=== PATIENT | female | born 1970 | race Caucasian/White ===

== ENCOUNTER 2023-03-20 22:30 | Emergency (ER) | payer BC, SELFPAY ==
[2023-03-20 22:31] VITALS: BP 143/92; PULSE 105; RESP 18; TEMP 36.4; O2SAT 96; BMI 31.1
--- NOTE | 2023-03-20 23:12 | ED.FALL ---
HPI - Fall General Chief Complaint: Fall Stated Complaint: fell downstairs back pain Time Seen by Provider: 03/20/23 22:33 History of Present Illness HPI Narrative: Patient is a 52-year-old female status post accidental fall. Patient was trying to lift a table walk down a stair when she fell on to concrete steps. Complaining of pain to the right gluteal area. Pain is made worse with movement. There is no loss of consciousness. There was no nausea no vomiting. No head injury. Not on blood thinners. Patient is from home. No alcohol no drugs. Related Data Previous Rx's Medication Instructions Recorded oxycodone 5 mg tablet 5 mg PO Q8H PRN pain #11 tabs 03/21/23 Allergies Allergy/AdvReac Type Severity Reaction Status Date / Time aspirin [Aspirin] Allergy Severe GI BLEED, Unverified 11/29/19 15:17 stomach upset/bleeding ibuprofen [Ibuprofen] Allergy Severe GI BLEED, Unverified 11/29/19 15:17 stomach upset, bleeding Antihistamine AdvReac Unknown tachycardia Uncoded 11/14/12 00:00 sulfa AdvReac Unknown nausea Uncoded 01/12/18 00:00 Review of Systems Review of Systems: Positive pain to the right gluteal area. Yes all other systems are reviewed and are negative Constitutional: Constitutional: Reports as per HPI Eyes: Eyes: Reports as per HPI [facility] Past Medical History Attestation statement: The following information was validated with the patient. Onset Date is defined in the Problem List Problems that require an onset date and time if occurred within 24 hrs of arrival to the ED Aortic Dissection and Rupture; Neurologic impairment; Cardiopulmonary Arrest; Endotracheal Intubation; Insertion or Replacement of Mechanical Circulatory Assist Device Social History Social History Advance Directives: No Advance Directives Information Provided: No Physical Exam Vital Signs: Vital Signs: Last Vital Signs Temp 98.1 F 03/21/23 00:22 Pulse 90 03/21/23 00:22 Resp 17 03/21/23 00:22 BP 128/76 03/21/23 00:22 Pulse Ox 92 03/21/23 00:22 O2 Del Method Room Air 03/21/23 00:22 BMI result Body Mass Index 31.1 Appearance: Alert. Oriented X3. No acute distress. Eyes: Pupils equal, round and reactive to light. ENT: Pharynx normal. Neck: Normal inspection. Neck supple. No lymph nodes noted. No crepitus CVS: Normal heart rate and rhythm. Pulses normal. Normal S1 and S2 Respiratory: No respiratory distress. Breath sounds normal. No Wheezing. No rales Abdomen: Soft and nontender. No rigidity. No distention. good BS x4 Skin: Large hematoma over the gluteal area on the right side. There is no CVA tenderness noted on The right side. Range of motion at the hip grossly intact Extremities: No lower extremity edema. Neurovascular intact to all extremities. No Lacerations. No Rash Neuro: Oriented X 3. No motor deficit. No sensory deficit. Moving all extermities. No slurred speech Medications Administered Discontinued Medications Generic Name Dose Route Start Last Admin Trade Name Freq PRN Reason Stop Dose Admin Acetaminophen 650 mg 03/20/23 23:05 03/21/23 00:27 Acetaminophen 325 Mg Tablet PO 03/20/23 23:06 Not Given ONCE ONE Hydromorphone HCl 2 mg 03/20/23 23:50 03/20/23 23:56 Hydromorphone Hcl 2 Mg Tablet PO 03/20/23 23:51 2 mg ONCE ONE Administration Discharge Plan Discharge Clinical Impression: Fracture of lumbar spine Patient Disposition: Home, Self-Care Instructions: Acute Low Back Pain (ED) Additional Instructions: there is a fracture of your 1st lumbar spine transverse processes. This is a stable fracture. However you may have pain with this. Prescriptions: New oxycodone 5 mg tablet 5 mg PO Q8H PRN (Reason: pain) Qty: 11 0RF Rx Instructions: Partial Fill upon patient request. Referrals: Physician,Cat J [Primary Care Provider] - 03/23/23 Mario Machado MD [Physician] - 03/23/23
--- NOTE | 2023-03-20 23:46 | PC.NURSE ---
RN to bedside for medication administration per MAY. Upon arrival to bedside pt was noted to look visibly uncomfortable sitting in a high fowlers like position. RN made pt aware that tylenol was the medication being offered however spouse at bedside states the pt took 1000mg of Tylenol around 1999 and there was no improvement in pain. RN to make MD Colvin aware and to request additional pain medication.
[2023-03-21 00:22] VITALS: BP 128/76; PULSE 90; RESP 17; TEMP 36.7; O2SAT 92
[2023-03-21 01:00] VITALS: BP 133/82; PULSE 91; RESP 18; O2SAT 95
== END 2023-03-21 01:04 | disposition home or self-care (01) ==
PROVIDERS: Emergency Provider Emergency Medicine Emergency Medical Services
DX: S32.019A Unspecified fracture of first lumbar vertebra, initial encounter for closed fracture (principal); W10.9XXA Fall (on) (from) unspecified stairs and steps, initial encounter; Y93.9 Activity, unspecified; Y92.9 Unspecified place or not applicable; Y99.9 Unspecified external cause status; M54.50 Low back pain, unspecified
CPT/HCPCS: 74176; 99284

== ENCOUNTER 2023-03-30 13:54 | Outpatient (AMB) | payer BC, SELFPAY ==
--- NOTE | 2023-03-30 14:07 | A.OFFVIS_ITS ---
Intake Intake Visit Reasons: fracture of lumbar spine? Intake Note: Pt here to follow up [facility] ED visit [employer] Required: No Allergies aspirin [Aspirin] Allergy (Severe, Unverified 11/29/19 15:17) GI BLEED, stomach upset/bleeding ibuprofen [Ibuprofen] Allergy (Severe, Unverified 11/29/19 15:17) GI BLEED, stomach upset, bleeding Antihistamine Adverse Reaction (Unknown, Uncoded 11/14/12 00:00) tachycardia sulfa Adverse Reaction (Unknown, Uncoded 01/12/18 00:00) nausea Assessment & Plan Assessment & Plan (1) Fracture of lumbar spine: Code(s): S32.009A - Unspecified fracture of unspecified lumbar vertebra, initial encounter for closed fracture Plan Dear colleague, Thank you for referring Maddie to our office today. She has a pleasant 52-year-old female who comes in today with a chief complaint of low back pain on her right side. She reports that her back pain is secondary to a fall on cement stairs which happened 10 days ago. She states that she gets a sharp burning-type pain in her low back that is isolated to the area in which he fell off several times throughout the day when she moves. She reports no radiation of symptoms, and no involvement of her lower extremities. She states that she is attempted to use [id number] Tylenol to help alleviate her symptoms and feels as though it provides modest relief. She also does have a prescription of oxycodone at this time, however feels as though she does not like taking it. She does report a pertinent medical history of a prior spinal surgery at L5-S1 for resection of a herniated disc. PMH: High blood pressure, previous herniated disc with surgical resection. Social hx: Patient does not smoke, reports no substance use. Medications: Diltiazem, lisinopril, Xanax, Ambien, venlafaxine. Allergies: Aspirin, ibuprofen, antihistamines, sulfa. Physical exam: No neurological deficits. Sensation is grossly intact. The patient is able to ambulate well, and rises from a seated position without difficulty. There is no ecchymosis or edema noted on inspection of the skin surface near the lumbar/thoracic spine. The patient does have pain to direct palpation of the lumbar spine, more so on the right. Imaging review: CT scan of the abdomen/pelvis shows mildly displaced fracture of the distal end of the transverse process on the right side of L1. Impression: Maddie is a pleasant 52-year-old female who comes in today with a chief complaint of mid-low back pain that has been ongoing for the last 10 days after she fell onto a cement staircase. She reports that her symptoms do not radiate, and are well localized to her low back/mid spine. She has no neurological symptoms. She has taken some time off of work and is attempting to rest/heal at home. 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 She was reassured that no treatment is needed for this issue, and it will heal on it s own. Her pain is relatively low-grade, rated as a 2-3 by the patient. She was prescribed a course of lidocaine patches and instructed to put one on once daily for 12 hour intervals. Thank you for allowing us to care for your patient. The total time spent with this visit with this patient was 45 minutes reviewing history, physical exam, CT abdomen / pelvis imaging review, and implementation o f treatment plan or further diagnostic testing Ming Lamas MD,PhD [facility] Medications: New lidocaine 3.5% 1 patch topical DAILY PRN 20 ea 0RF back pain Coding Level of Care Code New Pt Level 4 (50979) Diagnoses Fracture of lumbar spine S32.009A
== END 2023-03-30 14:41 | disposition home or self-care (01) ==
PROVIDERS: Visit Provider Physician Assistant
DX: S32.009A Unspecified fracture of unspecified lumbar vertebra, initial encounter for closed fracture (principal)
CPT/HCPCS: 99204

== ENCOUNTER → 2023-03-30 13:54 | Outpatient (BNVA) | payer BC, SELFPAY | PROVIDERS: Visit Provider Physician Assistant ==

== ENCOUNTER 2025-02-21 10:17 | Outpatient (AMB) | payer BC, SELFPAY ==
--- NOTE | 2025-02-21 10:18 | MHC.OFFVIS ---
Vital Signs 02/21/25 10:36 Height 5 ft 6 in Weight 188 lb BMI 30.3 Intake Visit Reasons: residual hemorrhoid skin tag Intake Note: Patient presents for an assessment for hemorrhoids. Pt c/o; occcasional rectal bleeding, pain and irritation, denies constipation, Hx colitis, colonoscopy- [facility] GI about 2 months ago. [employer] Required: No Accompanied by: Self / Same As Patient Allergies aspirin (Aspirin) Allergy (Severe, Unverified 02/21/25 10:33) GI BLEED, stomach upset/bleeding ibuprofen (Ibuprofen) Allergy (Severe, Unverified 02/21/25 10:33) GI BLEED, stomach upset, bleeding Antihistamine Adverse Reaction (Unknown, Uncoded 02/21/25 10:33) tachycardia sulfa Adverse Reaction (Unknown, Uncoded 02/21/25 10:33) nausea Medication List - Last Reconciled 02/21/25 by Amanuel Han MD alprazolam mg PO diltiazem HCl ER 180 mg PO DAILY lidocaine 3.5% 1 patch topical DAILY PRN lisinopril 10 mg PO DAILY oxycodone 5 mg PO Q8H PRN quetiapine mg PO venlafaxine ER 225 mg PO DAILY zolpidem 5 mg PO BEDTIME PRN HPI HPI residual hemorrhoid skin tag: Details: [age] year old female referred for a bleeding hemorrhoids She describes very frequent passage of bright blood per rectum. Sometimes she says that she would notice large amounts on the toilet bowl. She says sometimes he would also see clots She had a colonoscopy 3 months ago and was told that the likely source of her bleeding was her hemorrhoids. She has a previous diagnosis of ulcerative colitis but she says that she has been in remission for a long time and does not take any medications for this. She says she started to have hemorrhoids after childbirth more than 20 years ago. She says that these hemorrhoids did not really bother her much before. However, for the past year or so, she says that this seemed to be bigger and bothering her with occasional swelling and frequent bleeding. [facility] Medical History Bleeding hemorrhoids Surgical History Hx of surgical procedure History of tubal ligation Family History Father Lung cancer Mother Cancer of kidney Skin cancer Sister Lung cancer Paternal Grandfather Lung cancer Social History Alcohol intake: current Alcohol intake frequency: holidays/special occasions only Patient Tobacco Use Status: Never used Tobacco Review of Systems Const Denies chills and Denies fever(s) Card Denies chest pain, Denies dyspnea and Denies dyspnea on exertion Resp Denies cough, Denies dyspnea and Denies dyspnea on exertion GI Reports hematochezia and Denies change in bowel habits Denies hematuria Musc Denies back pain and Denies limited range of motion Neuro Denies focal weakness and Denies convulsions Psych Denies depression and Denies mood swings Physical Exam Const General: comfortable and no acute distress Orientation/consciousness: patient oriented x3 Neck Neck: Yes no lymphadenopathy Resp Auscultation: clear to auscultation bilaterally Cardio Rhythm: regular rhythm GI Other: Rectal exam shows large external hemorrhoids on both the left and right side Palpation (GI): Soft to palpation, nontender and no guarding Neuro General: patient oriented x3 Office Procedures Anoscopy She was in kneeling carleen-knife position. The anoscope was gently inserted. A full examination of the entire anal canal was done. He did have large columns of mixed internal external hemorrhoids on both the left and right side. There were no other lesions. There was no bleeding or ulceration. There is no fissure. There was no induration on digital exam. [id number] Assessment & Plan Assessment & Plan (1) Bleeding hemorrhoids: Code(s): K64.9 - Unspecified hemorrhoids Category: Medical Plan She describes frequent passage of bright blood per rectum. Her colonoscopy did not reveal any other source. She does have large internal and external hemorrhoids and these other likely source of her bleeding. I explained the technique of exam under anesthesia and hemorrhoidectomy. I reviewed the risks including but not limited to bleeding and infections, postop pain, as well as the benefits and alternatives. She understands and wants to proceed. She understands what to expect postoperatively. Coding Level of Care Code New Pt Level 3 (27745) Diagnoses Bleeding hemorrhoids K64.9 CPT Codes Details - CPT: 60952-[id number] ([id number])
[2025-02-21 10:36] VITALS: BMI 30.3
== END 2025-02-21 10:57 | disposition home or self-care (01) ==
LOC: HO.HGS 10:18
PROVIDERS: PCP Physician Assistant; Visit Provider Surgery
DX: K64.9 Unspecified hemorrhoids (principal)
CPT/HCPCS: 46600; 99203

== ENCOUNTER → 2025-02-21 10:17 | Outpatient (BNVA) | payer BC, SELFPAY | PROVIDERS: PCP Physician Assistant; Visit Provider Surgery | DX: K64.4 Residual hemorrhoidal skin tags (principal); K64.8 Other hemorrhoids | CPT/HCPCS: 46600 ==